=== PATIENT | female | born 2000 | race Two or more races ===

== ENCOUNTER → 2020-10-28 | Outpatient (CLI) | payer OTHER | END | disposition home or self-care (01) | LOC: PRENATAL 14:43 | PROVIDERS: ATTEND Obstetrics & Gynecology Maternal & Fetal Medicine | DX: O35.0XX1 Maternal care for (suspected) central nervous system malformation in fetus, fetus 1 (principal); O35.3XX1 Maternal care for (suspected) damage to fetus from viral disease in mother, fetus 1; O98.512 Other viral diseases complicating pregnancy, second trimester; Z36.89 Encounter for other specified antenatal screening; Z3A.21 21 weeks gestation of pregnancy ==

== ENCOUNTER 2021-01-23 20:45 | Inpatient (IN) | payer OTHER ==
[~2021-01-23] VITALS: Ht 149.9 cm; Wt 65.3 kg
[2021-01-23] MEDS ORDERED: IRON325 MG PO (21:25)
[2021-01-23] MEDS ORDERED: PRENATAL TABLE1 EAC1 PO (21:25)
== END 2021-02-04 12:43 | disposition home or self-care (01) | DRG 831 ==
LOC: OBS/DEL 20:45 → LDR 01-24 05:13 → OB/GYN 01-24 17:30
PROVIDERS: ADMIT Obstetrics & Gynecology; ATTEND Obstetrics & Gynecology
PROC: BY4FZZZ Ultrasonography of Third Trimester, Single Fetus (ICD-10-PCS; 2021-01-23)
PROC: BU46ZZZ Ultrasonography of Uterus (ICD-10-PCS; 2021-01-23)
PROC: 4A1HXFZ Monitoring of Products of Conception, Cardiac Rhythm, External Approach (ICD-10-PCS; 2021-01-24)
PROC: B24BYZZ Ultrasonography of Heart with Aorta using Other Contrast (ICD-10-PCS; 2021-01-28)
PROC: BW2410Z Computerized Tomography (CT Scan) of Chest and Abdomen using Low Osmolar Contrast, Unenhanced and Enhanced (ICD-10-PCS; 2021-01-29)
PROC: 30233N1 Transfusion of Nonautologous Red Blood Cells into Peripheral Vein, Percutaneous Approach (ICD-10-PCS; principal; 2021-02-03)
DX: O60.03 Preterm labor without delivery, third trimester (principal); O99.513 Diseases of the respiratory system complicating pregnancy, third trimester; J18.9 Pneumonia, unspecified organism; O99.013 Anemia complicating pregnancy, third trimester; D50.8 Other iron deficiency anemias; R09.02 Hypoxemia; O36.5930 Maternal care for other known or suspected poor fetal growth, third trimester, not applicable or unspecified; O34.211 Maternal care for low transverse scar from previous cesarean delivery; Z3A.34 34 weeks gestation of pregnancy; Z20.822 Contact with and (suspected) exposure to COVID-19
CPT/HCPCS: 71275

== ENCOUNTER 2021-02-18 11:15 | Inpatient (IN) | payer OTHER ==
[~2021-02-18] VITALS: Ht 149.9 cm; Wt 2.3 kg
[~2021-02-18 11:15] MED LIST: IRON325 MG PO; PRENATAL TABLE1 EAC1 PO
== END 2021-02-21 15:22 | disposition home or self-care (01) | DRG 788 ==
LOC: LDR 11:15 → O/R 11:15 → OB/GYN 11:15 → O/R 13:42 → OB/GYN 16:12
PROVIDERS: ADMIT Obstetrics & Gynecology; ATTEND Obstetrics & Gynecology
PROC: 4A1HXFZ Monitoring of Products of Conception, Cardiac Rhythm, External Approach (ICD-10-PCS; 2021-02-18)
PROC: 10D00Z1 Extraction of Products of Conception, Low, Open Approach (ICD-10-PCS; principal; 2021-02-18 13:00)
DX: O34.211 Maternal care for low transverse scar from previous cesarean delivery (principal); O36.5930 Maternal care for other known or suspected poor fetal growth, third trimester, not applicable or unspecified; O76 Abnormality in fetal heart rate and rhythm complicating labor and delivery; Z3A.38 38 weeks gestation of pregnancy; Z37.0 Single live birth; Z20.822 Contact with and (suspected) exposure to COVID-19

== ENCOUNTER 2021-09-25 16:26 | Emergency (ER) | payer OTHER ==
[~2021-09-25] VITALS: Ht 149.9 cm; Wt 68.0 kg
== END 2021-09-25 20:29 | disposition home or self-care (01) ==
LOC: ER 16:26
DX: R10.2 Pelvic and perineal pain (principal); Z33.1 Pregnant state, incidental